=== PATIENT | female | born 1985 | race Asian ===

== ENCOUNTER 2022-08-29 13:25 | Outpatient (CLI) | payer MEDICAID, SELFPAY ==
--- NOTE | ~2022-08-29 | US_ITS ---
Pelvic ultrasound. Clinical History: Second trimester , inconclusive viability Technique: Realtime transabdominal and transvaginal scanning of the pelvis was performed. Color flow Doppler and Doppler spectral analysis were performed. Findings: The uterus is anteverted, and contains an intrauterine gestation. Placenta is anteriorly lo cated. heart rate is 142 bpm. [place]-rump length of 8.3 cm corresponds to an estimated gestation al age of 14 weeks 2 days. Cervix closed, measuring 3.2 cm in length. Neither ovary seen. No adnexal mass seen. There is no evidence of free fluid in the cul de sac. Impression: Life intrauterine gestation with estimated gestational age of 14 weeks 2 days. heart rate is 14 2 bpm. Sonographic EFREN is 02/26/2023. Reviewed, dictated and finalized at [facility]. Impression: Life intrauterine gestation with estimated gestational age of 14 weeks 2 days. heart rate is 142 bpm. Sonographic EFREN is 02/26/2023.
== END 2022-08-29 13:26 | disposition home or self-care (01) ==
LOC: ANHIMG 13:31
PROVIDERS: PCP Obstetrics & Gynecology Gynecology; Visit Provider Advanced Practice Midwife
DX: O36.80X0 Pregnancy with inconclusive fetal viability, not applicable or unspecified (principal)
CPT/HCPCS: 76801

== ENCOUNTER 2022-10-08 12:40 | Outpatient (CLI) | payer OTHER, SELFPAY ==
--- NOTE | ~2022-10-08 | US_ITS ---
EXAMINATION: US OB /maternal detail DATE: 10/08/2022 14:05 INDICATION: survey TECHNIQUE: Multiple obstetric sonographic images performed. FINDINGS: Comparison ultrasound dated 08/29/2022 There is a single living fetus in vertex presentation. The placenta is anterior without placenta pre via. Placental margin to the cervix is 4.2 cm. Amniotic fluid volume is subjectively normal. cardiac activity and movement is noted with a heart rate of 136 beats per minute. The following anatomy was identified as normal: 4 chamber heart 3 vessel cord cord insertion kidneys urinary bladder stomach spine diaphragm ventricles cisterna magna cerebellum The following biometric data were obtained: BPD: 45mm corresponds to gestational age 19 weeks 3 days. Head circumference: 166 mm corresponds to gestational age 19 weeks 2 days. Abdominal circumference: 147 mm corresponds to gestational age 20 weeks 0 days. Femur length: 29 mm corresponds to gestational age 18 weeks 6 days. Head circumference to abdominal circumference ratio: 1.13 (normal range for expected gestational age is 1.08-1.26). Estimated weight: 293 grams +/- 44 grams using Hadlock method, 23.8%. IMPRESSION: 1: Single living intrauterine with an estimated gestational age of 19weeks 6days by initial ultrasound measurements, with an EDC of 02/26/2023 in vertex presentation. 2. Normal survey. Reviewed, dictated and finalized at location B. IMPRESSION: 1: Single living intrauterine with an estimated gestational age of 19 weeks 6days by initial ultrasound measurements, with an EDC of 02/26/2023 in ve rtex presentation. 2. Normal survey.
== END 2022-10-08 12:41 | disposition home or self-care (01) ==
LOC: ANHIMG 12:46
PROVIDERS: PCP Emergency Medicine; Visit Provider Obstetrics & Gynecology Gynecology
DX: Z36.9 Encounter for antenatal screening, unspecified (principal); Z3A.18 18 weeks gestation of pregnancy
CPT/HCPCS: 76805

== ENCOUNTER 2023-01-02 13:08 | Outpatient (CLI) | payer OTHER, SELFPAY ==
--- NOTE | ~2023-01-02 | US_ITS ---
EXAMINATION: US OB follow up DATE: 01/02/2023 15:22 INDICATION: Estimated size greater than expected for estimated gestational age TECHNIQUE: Real-time ultrasound of the pelvis was performed. The interpreting radiologist was not pre sent for the study. COMPARISON: 10/08/2022 FINDINGS: There is a single living fetus in vertex presentation. The placenta is anterior and not low-lying. T here are few internal anechoic placental lakes. The cervical length measures approximately 3.5 cm but assessment is limited by obscuration of the internal cervical os by shadowing from the skull. heart rate is 136 beats per minute (bpm). The amniotic fluid index is 11.6 cm, which is normal (5th%-95%: 8.8-23.8 cm at 31 weeks estimated gestational age). The following biometric data were obtained: BPD: 8.1 cm -> 32 weeks 4 days Head circumference: 29.4 cm -> 32 weeks 3 days Abdominal circumference: 28.0 cm -> 32 weeks 0 days Femur length: 5.7 cm -> 30 weeks 1 days These measurements are concordant. Head circumference to abdominal circumference ratio: 1.05 (normal range 0.96-1.14). Estimated weight: 1786 g (+/-) 268 g or 3 lbs. 15 oz. (+/-) 9 oz. IMPRESSION: 1. Single living fetus in vertex presentation with heart rate of 136 bpm. 2. Normal amniotic fluid volume index of 11.6 cm. 3. Estimated weight is 37th percentile by Hadlock criteria when 03/02/2023 is used as the estim ated date of delivery (EFREN). Please correlate with clinical information or earlier ultrasounds for mo st accurate EFREN. Reviewed, dictated and finalized at location A. IMPRESSION: 1. Single living fetus in vertex presentation with heart rate of 136 bpm. 2. Normal amniotic fluid volume index of 11.6 cm. 3. Estimated weight is 37th percentile by Hadlock criteria when 3 is used as the estimated date of delivery (EFREN). Please correlate with clinic al information or earlier ultrasounds for most accurate EFREN.
== END 2023-01-02 13:09 | disposition home or self-care (01) ==
LOC: ANHIMG 13:10
PROVIDERS: Visit Provider Obstetrics & Gynecology Gynecology
DX: O36.63X0 Maternal care for excessive fetal growth, third trimester, not applicable or unspecified (principal); Z3A.00 Weeks of gestation of pregnancy not specified
CPT/HCPCS: 76816

== ENCOUNTER 2023-03-04 16:46 | Observation (INO) | payer OTHER, SELFPAY ==
--- NOTE | 2023-03-04 18:41 | LDADM ---
This patient, Eugenia Sol, was admitted to Labor/Delivery/Recovery 104 on 03/04/23 at 16:46. Plans for labor, pain management and were discussed with patient. Patient/family oriented to hospital policies and general routines including ID bracelet, bed and alarms, visiting hours, pain management, procedures, bathroom and other care routines, personal items, smoking policy, room service/diet and guest tray routines, security routines, and visiting hours. Patient/Family are encouraged to report perceived risks to care and to ask questions if they do not understand what they are told or what they should do. See OBIX for further documentation.
--- NOTE | 2023-03-05 09:13 | PM.OBTRLD ---
OB - Triage/Final Diagnosis Visit Information Date of evaluation: 03/04/23 Reason for evaluation: threatened labor Comments/Additional reasons for admission: I have assessed the risk for this patient, Eugenia Sol, and determined that she would benefit from observation care. Evaluation Comments: no cervical change. VSS. NST reactive. Declines IOL. Has appt in office 03/05/23.
== END 2023-03-04 18:57 | disposition home or self-care (01) ==
PROVIDERS: Admitting Provider Obstetrics & Gynecology Gynecology; Visit Provider Obstetrics & Gynecology Gynecology
DX: O47.9 False labor, unspecified (principal); Z3A.00 Weeks of gestation of pregnancy not specified
CPT/HCPCS: G0378; G0379

== ENCOUNTER 2023-03-05 05:00 | Inpatient (IN) | payer OTHER, SELFPAY ==
--- NOTE | 2023-02-10 13:05 | PC.NURSE ---
Patient planning to --consent signed Patient is scheduled for C/S on 03/11/23 if she does not deliver by before 03/11/23 Patient given requisition for lab draw on 03/10/23 if does not deliver before 03/11/23
[2023-03-05] VITALS (189 sets, daily range): BP systolic 86–142; BP diastolic 50–94; PULSE 26–136; RESP 16; TEMP 36.4–37.8; O2SAT 80–100; BMI 28.3
[2023-03-05] MEDS: fentaNYL CITRATE INJ (*CRX) 100 MCG/2 ML VIAL IV PUSH ×4 (05:51→09:55)
[2023-03-05 06:02] LABS: Basophils Percent Auto 0.2 % (0.2-1.2); Hematocrit 40.5 % (37.0-47.0); Hemoglobin 13.8 g/dL (12.0-15.0); Immature Granulocyte Absolute 0.12 K/mm3 (0.00-0.031); Immature Granulocyte Percent A 0.7 % (0-0.5); Lymphocytes Absolute Auto 1.31 K/mm3 (0.9-3.2); Mean Corpuscular HGB Conc 34.1 g/dl (32-36); Mean Corpuscular Hemoglobin 30.3 pg (26-34); Mean Corpuscular Volume 88.8 fl (80-100); Mean Platelet Volume 10.2 fl (7.4-10.4); Monocytes Absolute Auto 0.7 K/mm3 (0.1-0.6); Neutrophils Absolute Auto 14.2 K/mm3 (1.3-6.7); Neutrophils Percent Auto 87.1 % (45.5-73.1); Platelet Count Result 204 k/mm3 (150-375); Red Blood Count 4.56 M/mm3 (4.2-5.4); Red Cell Distribution Width 12.9 % (11.5-14.5); White Blood Count 16.3 K/mm3 (4.5-10.0)
--- NOTE | 2023-03-05 06:07 | WPDOBADMIT ---
Obstetrics - Admit Note Admission Note: record reviewed. No pertinent additions to the history and/or any subsequent changes in the physical findings that are not consistent with the expected course of the were found. Additions to the history and/or subsequent changes in the physical findings follow. here at 40 2/7 wks in active labor. Patient with history of LTCS with 2 layer closure for breech presentation. Patient wants to try for vaginal . TOLAC discussed on multiple visits. Patient and spouse aware of risks including risk of uterine rupture with maternal or injury including . Patient and spouse agree to proceed with TOLAC. Patient was 1 cm yesterday, 3 cm on arrival and now 5/100/-2. AROM with clear fluid. IUPC attempted to be placed but unable posteriorly kept hitting resistance at 10 cm so removed. Will place later if needed. FHT's reactive prior to Fentanyl.
[2023-03-05] MEDS: LACTATED RINGERS 1,000 ML 125 ML IV CONT (06:28)
--- NOTE | 2023-03-05 08:09 | PM.OBPNLAB ---
Pain Control Date/time seen: 03/05/23 0750 Pain control: tolerating well Comments: Reports regular uterine contractions. Able to breathe through them. Resting in bed on her right side. Pelvic Exam Comments: deferred at this time. Contractions Monitor mode: External Contraction frequency: 3 (3-4) Contraction duration: 80 Contraction pattern: Regular Contraction phase: Contraction Contraction intensity: Moderate Status status: Category l Assessment and Plan Assessment: active labor Plan: continuous present management Comments: CNM to bedside. Spouse present and supportive. Breathing through contractions. Discussed plan of care. Recommend upright positioning when able to facilitate descent. Discussed standing and swaying, leaning forward onto bed, using labor ball. Pt very interested. SVE deferred at this time due to regular uterine contraction pattern and pt not having urge to push. Dr. Recinos updated. Anticipate vaginal .
[2023-03-05] MEDS: ONDANSETRON INJ 4 MG/2 ML VIAL IV PUSH (08:54)
--- NOTE | 2023-03-05 09:21 | WPDANESEPP ---
Anes - Eval Pre Procedure Procedure: Labor epidural Date/Time: 03/05/23 09:21 Surgeon: jennifer Preop Diagnosis: pain during labor Pre Op Diagnosis: Contractions Patient Data Age: 37 Gender: F Height: 1.6 m Weight: 72.574 kg Last Vital Signs Temp 36.4 C L 03/05/23 06:04 Pulse 64 03/05/23 08:15 BP 111/78 03/05/23 08:15 Pulse Ox 99 03/05/23 08:51 O2 Del Method Room Air 03/05/23 05:57 Allergies Allergy/AdvReac Type Severity Reaction Status Date / Time No Known Allergies Allergy Verified 02/10/23 12:44 Home Medications Medication Instructions Recorded Confirmed Type vitamin 1 tablet 03/05/23 History no.76-iron,carbonyl 29 mg iron-folic acid 1 mg tablet Laboratory Tests 03/05/23 05:31 WBC 16.3 H K/mm3 (4.5-10.0) RBC 4.56 M/mm3 (4.2-5.4) Hgb 13.8 g/dL (12.0-15.0) Hct 40.5 % (37.0-47.0) MCV 88.8 fl (80-100) MCH 30.3 pg (26-34) MCHC 34.1 g/dl (32-36) RDW 12.9 % (11.5-14.5) Plt Count 204 k/mm3 (150-375) MPV 10.2 fl (7.4-10.4) Immature Gran % (Auto) 0.7 H % (0-0.5) Neut % (Auto) 87.1 H % (45.5-73.1) Lymph % (Auto) 8.0 L % (18.3-44.2) [place] % (Auto) 4.0 % (2.6-8.5) Eos % (Auto) 0.0 % (0-4.4) Baso % (Auto) 0.2 % (0.2-1.2) Lymph # (Auto) 1.31 K/mm3 (0.9-3.2) [place] # (Auto) 0.7 H K/mm3 (0.1-0.6) Eos # (Auto) 0.0 K/mm3 (0-0.3) Baso # (Auto) 0.0 K/mm3 (0.0-0.1) Abs Immat Gran (auto) 0.12 H K/mm3 (0.00-0.031) Absolute Neuts (auto) 14.2 H K/mm3 (1.3-6.7) Absolute Nucleated RBC 0.0 K/mm3 (0.0-0.012) Nucleated RBC % 0.0 % (0.0-0.2) RPR Pending Blood Type A Positive Antibody Screen Negative Patient hx anesthesia problems: none Family hx anesthesia problems: none Results Review: All pre-operative results and documents have been reviewed as part of the pre-operative evaluation. [facility] Past Medical History Medical History (Updated 03/05/23 @ 09:22 by Eva Vergara CRNA) IUP (intrauterine ), incidental Family History Family History (Updated 02/10/23 @ 12:46 by Zulma Augustine RN) Father Hypertension Diabetes mellitus Cerebrovascular accident Sibling Diabetes mellitus Social History Social History Smoking status: Never smoker Second hand tobacco smoke exposure: No Substance use: never Lack of Transportation: No Lack of Food: Never True Current Housing: I Do Not Have Housing Concerned About Future Housing: Decline to Answer Difficulty Paying Gas/Electric Bills: No Difficulty Paying for Meds: No Currently Unemployed: No Education: Master's Degree or Higher Difficulty w/ Childcare or Family Care: No Spiritual care concerns: No Exam Day of Procedure 03/05/23 09:21
[2023-03-05 13:18] LABS: Rapid Plasma Reagin Non-Reactive (NonReactive)
--- NOTE | 2023-03-05 17:51 | PM.OBPNLAB ---
Pain Control Date/time seen: 03/05/23 17:45 Pain control: tolerating well and epidural Comments: feeling intermittent rectal pressure. Pelvic Exam Dilation (cm): 10 Effacement (%): 100 station: +2 Amniotic membrane status: Ruptured Comments: small amt red bloody show present Contractions Monitor mode: Internal Contraction frequency: 3 (2-4) Contraction duration: 80 Contraction pattern: Regular Contraction phase: Contraction Status status: Category l Assessment and Plan Pitocin rate (mU/min): 4 Comments: Plan to begin pushing with contractions. Anticipate vaginal . Dr. Recinos updated.
[2023-03-05] MEDS: OXYTOCIN 30 UNITS/NS 500 ML 30 UNITS/500 ML BAG 125 UNITS IV CONT (19:38)
--- NOTE | 2023-03-05 20:13 | PM.OBPRVD ---
OB - Delivery Note Procedure Delivery date: 03/05/23 Procedure: Procedures Operation Date: 03/11/23 07:30 <No data on this case meets the specified criteria> Induction method: None Delivery augmentation: Rupture of Membranes and Pitocin Delivery monitor: External FHT and Internal Uterine Route of delivery: Episiotomy description: None Laceration Description: Perineal - 2nd Degree and Other (Bilateral sulcal) Delivery repair: vicryl Specimen: Yes Quantitative Blood Loss (ml): 600 Anesthesia type: Epidural Disposition: Floor Complications: Baby Date of : 03/05/23 Time of : 19:06 Weeks of gestation at delivery: 40 Infant gender: Male Weight (pounds): 6 Weight (ounces): 7 presentation: vertex position: Left Occiput Anterior Placenta delivery description: Spontaneous Cord Vessel Description: 3 Vessels, Clamped/Cut and Delayed Cord Clamping score one minute: 8 score five minutes: 9 Narrative: Pt arrived in spontaneous labor. Membranes ruptured by Dr. Recinos. Patient given epidural for analgesia. she progressed to complete dilation and began pushing with contractions. She may good descent with maternal expulsive efforts. She brought the head to complete crown. With the next contraction she delivered the head, there was excellent restitution and quick delivery of the anterior and posterior shoulders followed by the remainder of the . The infant was placed on the maternal abdomen and dried and stimulated by nursery staff. After 1 minute of life the cord was doubly clamped and cut. Cord blood, cord gases, and cord segment were obtained. The placenta delivered spontaneously. There was excellent hemostasis and uterine tone. All delivery counts correct. Infant skin to skin with mother and breast-feeding in the delivery room.
[2023-03-05] MEDS: IBUPROFEN 600 MG TABLET PO (20:50)
[2023-03-05] MEDS: BENZOCAINE 20% AER SPR (*SP) 56 GM CAN 1 SPRAY TOPICAL (22:56)
[2023-03-05] MEDS: WITCH HAZEL 40 PADS 1 PAD TOPICAL (22:56)
--- NOTE | 2023-03-05 23:30 | PC.NURSE ---
Patient transferred to post room # [id number] via ( W/C ). Support person present. Oriented to unit, room, information board, rooming in, admission packet and security measures. Patient verbalizes understanding.
[2023-03-06 04:58] VITALS: BP 109/65; PULSE 69; RESP 16; TEMP 36.6; O2SAT 99
[2023-03-06 05:16] LABS: Hematocrit 35.6 % (37.0-47.0); Hemoglobin 11.6 g/dL (12.0-15.0)
--- NOTE | 2023-03-06 07:56 | P.PNOB_ITS ---
OB - PN: Subj Subjective Date/time seen: 03/06/23 07:56 Interval history: c/o sore throat Patient comments: pain well controlled [place] baby status: doing well OB - PN: Obj Data Labs 03/06/23 05:06 Labs: Laboratory Results - last 24 hr 03/05/23 03/06/23 05:31 05:06 Hgb 11.6 L Hct 35.6 L RPR Non-reactive OB - PN A/P Plan day: 1 Plan: routine care Time Spent With Patient Time: Total time spent is greater than 50% in coordination of care (as documented) at patient's floor/unit and/or counseling patient: Exam : Bimanual exam- vagina & uterus: other (Uterus firm, nt @U)
[2023-03-06 08:45] VITALS: BP 99/64; PULSE 82; RESP 16; TEMP 37.3; O2SAT 97
[2023-03-06] MEDS: MULTIVIT/MIN/PREN/FOL AC/IRON TABLET 1 TAB PO (09:08)
[2023-03-06] MEDS: DOCUSATE SODIUM 100 MG CAPSULE PO ×2 (09:08→16:02)
[2023-03-06] MEDS: HYDROcodone/acetaminophen (*CRX) 5-325 MG TABLET 1 TAB PO ×2 (09:09→16:02)
[2023-03-06] MEDS: BENZOCAINE 20% AER SPR (*SP) 56 GM CAN 1 SPRAY TOPICAL (09:11)
[2023-03-06] MEDS: WITCH HAZEL 40 PADS 1 PAD TOPICAL (09:11)
[2023-03-06] MEDS: LANOLIN (LANSINOH) 7.5 GM CREAM 1 APPLIC TOPICAL (09:11)
[2023-03-06 11:53] VITALS: BP 97/65; PULSE 95; RESP 16; TEMP 36.6; O2SAT 97
--- NOTE | 2023-03-06 13:09 | WPDANLDPN2 ---
Anes-Prog Note L&D Date/Time: 03/06/23 13:09 Neuro status: Neuro function grossly intact. Vital Signs: Last Vital Signs Temp 36.6 C 03/06/23 11:53 Pulse 95 03/06/23 11:53 Resp 16 03/06/23 11:53 BP 97/65 L 03/06/23 11:53 Pulse Ox 97 03/06/23 11:53 O2 Del Method Room Air 03/06/23 11:38 Pain score (VAS): 2-patient reports dull frontal headache and legs that feel weak. She has full motor movement bilaterally and is able to ambulate. Will continue to monitor I/O: Intake & Output 03/05/23 03/06/23 03/06/23 23:59 07:59 15:59 Intake Total 1000 240 Output Total 690 Balance 310 240 Patient feedback: Patient satisfied with anesthetic care.
[2023-03-06 16:08] VITALS: BP 98/59; PULSE 101; RESP 16; TEMP 36.7; O2SAT 99
[2023-03-06 20:50] VITALS: BP 104/68; PULSE 88; RESP 16; TEMP 36.7; O2SAT 100
[2023-03-06] MEDS: IBUPROFEN 600 MG TABLET PO (23:33)
--- NOTE | 2023-03-07 07:35 | PM.OBDSVD ---
DS: Admitting Diagnosis Discharge Date 03/07/2023 Admitting Diagnosis IUP at 40 weeks Spontaneous labor Hx Prior section for breech presentation DS: Discharge Diagnosis Discharge Diagnosis (1) Mother currently breast-feeding: Code(s): Z39.1 - Encounter for care and examination of lactating mother Status: Acute (2) (vaginal after ): Code(s): O34.219 - Maternal care for unspecified type scar from previous delivery Status: Acute (3) At risk for ineffective : Code(s): Z91.89 - Other specified personal risk factors, not elsewhere classified Status: Acute OB - DS: Summary Hospital Course Hospital Course: Uncomplicated OB Procedures : Ultrasound OB Procedures Intrapartum: Spontaneous Vag Delivery OB Procedures: : None Peripartum Data Delivery Method: Natural Vaginal Laceration Description: Perineal - 2nd Degree (and bilateral sulcus lacerations) and Superficial Episiotomy description: None Procedures: Procedures Operation Date: 03/11/23 07:30 <No data on this case meets the specified criteria> complications: none Status at Discharge Functional status at discharge: independent ambulation Overall status at discharge: patient is progressing back to baseline Time Spent with Patient Time attestation: Total time spent providing and/or coordinating discharge services: Exam Narrative: Alert and oriented. Mood is pleasant and cooperative. Perineum with minimal edema. Fundus firm and below umbilicus. Const: General: cooperative, healthy appearing, no acute distress and alert Orientation/consciousness: patient oriented x3 Limitations: no limitations Resp: Effort & Inspection: normal respiratory effort and able to speak in complete sentences Auscultation: clear to auscultation bilaterally Cardio: Rate: regular rate GI: Inspection: normal to inspection Auscultation: normal bowel sounds : General: Yes bladder normal to palpation Bimanual exam- vagina & uterus: bladder normal to palpation OB/external & speculum: vaginal bleeding (small) Other: Fundus firm and below U Skin: General skin exam: normal color and no rashes or lesions noted Neuro: General: patient oriented x3 and moves all extremities Cognition (Neuro): normal cognition Extrem: General: normal to inspection and no calf tenderness Psych: Appearance: grossly normal Mental Status: mental status grossly normal Affect: normal affect Thought process: Normal thought process present DS: Data Data Completed and Pending Labs on day of discharge: Labs from last 24 hours 03/05/23 05:31 WBC 16.3 H RBC 4.56 Hgb 13.8 Hct 40.5 MCV 88.8 MCH 30.3 MCHC 34.1 RDW 12.9 Plt Count 204 MPV 10.2 Immature Gran % (Auto) 0.7 H Neut % (Auto) 87.1 H Lymph % (Auto) 8.0 L [place] % (Auto) 4.0 Eos % (Auto) 0.0 Baso % (Auto) 0.2 Lymph # (Auto) 1.31 [place] # (Auto) 0.7 H Eos # (Auto) 0.0 Baso # (Auto) 0.0 Abs Immat Gran (auto) 0.12 H Absolute Neuts (auto) 14.2 H Absolute Nucleated RBC 0.0 Nucleated RBC % 0.0 RPR Non-reactive Blood Type A Positive Antibody Screen Negative Discharge Plan Discharge Attending physician on discharge: Alice Recinos Discharging Clinician: Abby Agustin Anticipated Discharge Date/Time: 03/07/23 13:00 Patient Disposition: Home, Self-Care Activity: may shower Diet: as tolerated and regular Wound Care Instructions: follow printed instructions Discharge Instructions: Continue taking your vitamin and any other supplements as previously directed (Examples: Iron, Vitamin D). You may take Tylenol 1000mg over the counter every 6 hours as needed for pain. Do not exceed 4000mg of Tylenol daily. You may continue using tucks pads and dermoplast spray if needed for a few more days. Patient Instructions: Antibiotic Form Stand Alone Forms: [employer]
[2023-03-07 08:35] VITALS: BP 108/77; PULSE 91; RESP 18; TEMP 36.5; O2SAT 91
[2023-03-07] MEDS: MULTIVIT/MIN/PREN/FOL AC/IRON TABLET 1 TAB PO (09:51)
[2023-03-07] MEDS: HYDROcodone/acetaminophen (*CRX) 5-325 MG TABLET 1 TAB PO (09:51)
[2023-03-07] MEDS: DOCUSATE SODIUM 100 MG CAPSULE PO (09:51)
--- NOTE | 2023-03-07 11:00 | PC.NURSE ---
Patient viewed the discharge video Mother & Baby Care, The First Two Weeks . Patient was given the opportunity and encouraged to ask questions. Patient verbalized understanding of information shared and has been given the mother/baby guide for home reference.
--- NOTE | 2023-03-07 12:35 | P.PNOB_ITS ---
OB - PN: Subj Subjective Date/time seen: 03/07/23 0735 Interval history: Doing well. Urinating without difficulty. Denies passing any large clots. Denies dizziness with ambulating. Tolerating po food and fluids. Reports infant in nursery overnight. Has not started pumping-no pump at bedside. Patient comments: no complaints, pain well controlled and tolerating diet [place] baby status: other (In Level 2 nursery overnight due to desaturations and HTN) [place] feeding status: breast and bottle feeding (Desires to breastfeed, will pump if seperated from ) OB - PN: Obj Data Labs 03/06/23 05:06 OB - PN A/P Assessment and Plan (1) (vaginal after ): Code(s): O34.219 - Maternal care for unspecified type scar from previous delivery Status: Acute (2) Mother currently breast-feeding: Code(s): Z39.1 - Encounter for care and examination of lactating mother Status: Acute (3) At risk for ineffective : Code(s): Z91.89 - Other specified personal risk factors, not elsewhere classified Status: Acute Assessment and Plan: due to maternal/ seperation Plan day: 2 Plan: discharge home Comments: transferring to NICU Time Spent With Patient Time: Total time spent is greater than 50% in coordination of care (as documented) at patient's floor/unit and/or counseling patient: Review of Systems Review of Systems: All systems reviewed & are unremarkable except as noted in HPI and below Exam Narrative: Alert and oriented. Mood is pleasant and cooperative. Perineum with minimal edema. Fundus firm and below umbilicus. Const: General: cooperative, healthy appearing, no acute distress and alert Orientation/consciousness: patient oriented x3 Limitations: no limitations Resp: Effort & Inspection: normal respiratory effort and able to speak in complete sentences Auscultation: clear to auscultation bilaterally Cardio: Rate: regular rate GI: Inspection: normal to inspection Auscultation: normal bowel sounds : General: Yes bladder normal to palpation Bimanual exam- vagina & uterus: bladder normal to palpation OB/external & speculum: vaginal bleeding (small) Other: Fundus firm and below U Skin: General skin exam: normal color and no rashes or lesions noted Neuro: General: patient oriented x3 and moves all extremities Cognition (Neuro): normal cognition Extrem: General: normal to inspection and no calf tenderness Psych: Appearance: grossly normal Mental Status: mental status grossly normal Affect: normal affect Thought process: Normal thought process present
== END 2023-03-07 13:25 | disposition home or self-care (01) | DRG 560 ==
LOC: ANHLDR 20:24 → ANHOB2 23:38
PROVIDERS: Advanced Practice Midwife; Admitting Provider Obstetrics & Gynecology Gynecology; Visit Provider Obstetrics & Gynecology Gynecology
DX: O34.219 Maternal care for unspecified type scar from previous cesarean delivery (principal); Z37.0 Single live birth; O70.1 Second degree perineal laceration during delivery; Z3A.40 40 weeks gestation of pregnancy
CPT/HCPCS: 36415; 85014; 85018; 85025; 86592; 86850; 86900; 86901; 88307; A9270; J2405; J2590; J2795; J3010; J7120